=== PATIENT | male | born 2005 | race African-American/Black ===

== ENCOUNTER 2024-06-02 11:59 | Emergency (ER) | payer OTHER, SELFPAY ==
--- NOTE | ~2024-06-02 | CT_ITS ---
EXAMINATION: CT HEAD WITHOUT CONTRAST CLINICAL INFORMATION: headache COMPARISON: None available. TECHNIQUE: Contiguous axial imaging was performed from the skull base to vertex without intravenous administration of contrast. This CT examination was performed using dose optimization techniques as appropriate, variously including the following: *Automated exposure control *Adjustment of mA and/or kV according to patient size (this includes techniques or standardized protocols for targeted exams where dose is matched to indication/reason for exam; i.e. extremities or head) *Use of iterative reconstruction technique DLP: 710 mGy-cm FINDINGS: RESULTS: There is no evidence of acute intracranial hemorrhage, acute large vessel infarct, midline shift or mass effect. The apple-white differentiation is preserved. The ventricles and sulci are within normal limits in size and configuration, aside from mild asymmetry of the left lateral ventricle compared to the right which is a normal variant. There is no evidence of hydrocephalus. There are no extraaxial collections. Osseous structures are intact. Paranasal sinuses and mastoid air cells are well aerated. CT/CT head/brain wo IV con IMPRESSION: No acute intracranial pathology.
[2024-06-02 12:07] VITALS: BP 119/57; PULSE 64; RESP 17; TEMP 36.4; O2SAT 100; BMI 20.9
--- NOTE | 2024-06-02 12:10 | ED_ITS ---
HPI - General Adult General Chief complaint: Headache Stated complaint: Headaches Time Seen by Provider: 06/02/24 12:54 Source: patient and RN notes reviewed Mode of arrival: ambulatory Limitations: no limitations History of Present Illness ED Provider: Jade Pa PA-C HPI narrative: This is a 18-year-old male, with no known medical problems, who presents emergency department with complaints of recurrent headaches for the last several years. Patient states that the headaches occur at random, and states that he is unable to do his daily tested living as the pain does become severe. He states that he currently has a headache, reports that is mild and not the worst headache of his life. He states that last night he worked in overnight, and has not slept. He states that he does not drink a lot of water throughout the day, and often times goes without eating for prolonged periods of time. He denies any fevers or chills. No blurred vision or double vision. No chest pain or shortness for breath. No abdominal pain, nausea or vomiting. He states that he takes Tylenol and or ibuprofen as needed for headaches which provides him with some relief. He does not have a primary care physician at this time. He has been calling however no offices are making appointments for him at this time due to the dizziness of these offices. No recent head injury or head strike. No loss of consciousness. No other complaints or concerns at this time. MD complaint: Headache Onset (ago): year(s) Location: head Radiation: non-radiation Severity: moderate Quality: aching Pain Consistency: constant Exacerbating factors: none Associated symptoms: denies other symptoms Treatments prior to arrival: none Related Data Allergies Allergy/AdvReac Type Severity Reaction Status Date / Time No Known Allergies Allergy Verified 06/02/24 12:15 Review of Systems 2 Review of Systems: Yes all other systems are reviewed and are negative Constitutional: Constitutional: Reports as per [facility] Social History Social History Advance Directives: No Do you have a plan to hurt others: No Plan Physical Exam ED Vital Signs: Vital Signs - 24 hr 06/02/24 12:07 06/02/24 14:32 06/02/24 15:33 Temperature 97.6 F 97.3 F Pulse Rate 64 65 Respiratory Rate 17 16 Blood Pressure 119/57 L 99/47 L 99/52 L Pulse Oximetry 100 100 Oxygen Delivery Method Room Air Room Air 06/02/24 15:48 Temperature 97.6 F Pulse Rate 64 Respiratory Rate 16 Blood Pressure 108/62 Pulse Oximetry 100 Oxygen Delivery Method Room Air BMI result Body Mass Index 20.9 Const General: cooperative, comfortable and no acute distress Orientation/consciousness: patient oriented x3 Limitations: no limitations HENMT Head: Yes normal to inspection, Yes normocephalic and Yes atraumatic Ears: hearing grossly normal bilaterally General nose exam: Normal external nose present Face and sinus: Yes normal facial exam Mouth: Normal oral and palatal mucosa present, oropharynx normal and moist mucous membranes Throat: Yes posterior oropharynx normal Eyes General: appearance normal, both eyes and all related structures Eyelids: Yes eyelids normal Conjunctivae: conjunctivae normal Sclerae: sclerae normal Pupils: Equal, round and reactive pupils present EOM: EOMs intact bilaterally Neck Neck: Yes normal visual inspection, Yes full ROM and Yes no lymphadenopathy Lymphatic: no lymphadenopathy noted Chest Chest palpation & inspection: normal inspection of the chest Resp Effort & Inspection: normal respiratory effort and able to speak in complete sentences Auscultation: clear to auscultation bilaterally, no crackles, no rales, no rhonchi and no wheezes Cardio Rate: regular rate Rhythm: regular rhythm Heart sounds: S1 normal heart sound present and S2 normal heart sound present GI Inspection: Yes normal to inspection Skin General skin exam: no rashes or lesions noted Trauma: no lacerations or abrasions Wounds: no wounds Neuro General: patient oriented x3 and moves all extremities Cranial nerves: Yes CN's II-XII intact bilaterally and Yes Equal, round and reactive pupils present Cognition (Neuro): normal cognition Gait exam (Neuro): Normal gait present Motor exam (neuro): 5/5 motor strength present throughout and Pronator motor function not present Extrem General: Yes normal to inspection Right upper extremity: normal to inspection Left upper extremity: normal to inspection Right lower extremity: normal to inspection Left lower extremity: normal to inspection Course Course Course Narrative: This is an RME performed by [place] CNP: Additional HPI, ROS, PE not included below will be deferred to primary provider. Patient is a 18-year-old male who presents to the emergency department for evaluation of headaches. He reports experiencing headaches 1-2 times per week for years, now occuring more frequently, at times has associated nausea. Denies photophobia/phonophobia. Unable to identify exacerbating or alleviating factors. He infrequently trialed acetaminophen and ibuprofen but has not noticed much improvement with these. Today headache with onset at 06:00, denies any URI symptoms. No focal neurological deficits on exam Reevaluation(s) Reevaluation #1: CT head is normal. Discussed findings with patient and mother. Discussed the importance of good headache care - proper sleep, adequate hydration, and little meals throughout the day. Urged the importance of following up with PCP. I asked if patient's headache is feeling better he states that after sleeping in the room awaiting for his results he is feeling much better, declines wanting pain medication at this time. Given strict return precautions. He understands and agrees with plan. Patient stable for discharge. Medical Decision Making Medical Decision Making [facility] Narrative: This is a 18-year-old male who presents emergency department with complaints of headaches for the last several years. Patient states that he occasionally gets headaches several times a month. He has not been seen medically for these headaches. He does not have a primary care physician at this time. On arrival, blood pressure 119/57. He is alert and oriented x4. He denies any thunderclap headache presentation. He states that his headache is mild. Given ongoing headaches, will obtain CT of the head to rule out any intracranial process although this is unlikely. Differential Diagnosis Differential Diagnoses: The differential diagnosis associated with the presentation includes Intracranial mass, ICH, migraine headache, tension headache, cluster headache Admission/Observation Consideration of admission/observation: Escalation of care including admission/observation considered Lab Data [facility] Lab Attestation statement: I reviewed the patient's lab results. No leukocytosis, stable H&H, chemistry within normal limits. 06/02/24 12:23 06/02/24 12:23 Labs: Lab Results 06/02/24 Range/Units 12:23 WBC 8.2 (4.8-10.8) X10*3/uL RBC 4.85 (4.60-5.80) X10*6/uL Hgb 13.7 L (14.0-18.0) g/dl Hct 38.7 L (42.0-52.0) % MCV 79.8 L (80.0-98.0) fL MCH 28.2 (27.0-33.0) pg MCHC 35.4 (31.0-36.0) g/dl RDW 13.2 (11.0-16.0) % Plt Count 198 (160-400) X10*3/uL MPV 9.9 (9.4-12.4) fL Immature Gran % (Auto) 0.2 (0.0-0.4) % Neut % (Auto) 53.5 (45-73) % Lymph % (Auto) 31.5 (20-40) % [place] % (Auto) 12.8 H (2-11) % Eos % (Auto) 1.5 (0-4) % Baso % (Auto) 0.5 (0-2) % Lymph # (Auto) 2.6 (1.2-4.9) X10*3/uL [place] # (Auto) 1.1 (0.1-1.2) X10*3/uL Eos # (Auto) 0.1 (0.0-0.4) X10*3/uL Baso # (Auto) 0.0 (0.0-0.2) X10*3/uL Abs Immat Gran (auto) 0.02 (0.00-0.03) X10*3/uL Absolute Neuts (auto) 4.4 (2.0-8.3) x10*3/uL Absolute Nucleated RBC 0.000 (0.0-0.012) X10*3/uL Nucleated RBC % (auto) 0.0 (0.0-0.2) /100WBC Sodium 135 (135-145) mmol/L Potassium 4.4 (3.3-5.1) mmol/L Chloride 102 (96-108) mmol/L Carbon Dioxide 25 (22-29) mmol/L Anion Gap 12 (12-20) BUN 19 H (9-16) mg/dL Creatinine 0.79 (0.5-1.4) mg/dL Estim Creat Clear Calc 144.4 Estimated GFR > 60 Random Glucose 97 (60-115) mg/dL Calcium 9.6 (8.4-10.2) mg/dL Magnesium 2.2 (1.6-2.6) mg/dL Total Bilirubin 0.5 (0.0-1.0) mg/dL AST 18 (5-37) U/L ALT 16 (0-40) U/L Alkaline Phosphatase 52 (39-117) U/L Total Protein 7.6 (6.5-8.0) g/dL Albumin 4.4 (3.5-5.0) g/dL Influenza Type A (PCR) NEGATIVE (Negative) Influenza Type B (PCR) NEGATIVE (Negative) RSV RNA Qual (PCR) NEGATIVE (Negative) SARS-CoV-2 RNA (RT-PCR) NEGATIVE (Negative) Radiology Impression Discussion of test interpretation with radiology: I have reviewed the radiologist's reading. Radiologist Impression: INDINGS: RESULTS: There is no evidence of acute intracranial hemorrhage, acute large vessel infarct, midline shift or mass effect. The apple-white differentiation is preserved. The ventricles and sulci are within normal limits in size and configuration, aside from mild asymmetry of the left lateral ventricle compared to the right which is a normal variant. There is no evidence of hydrocephalus. There are no extraaxial collections. Osseous structures are intact. Paranasal sinuses and mastoid air cells are well aerated. CT/CT head/brain wo IV con IMPRESSION: No acute intracranial pathology. Dictated By: Elma Butterfield MD Independent Historian Clinical information obtained from an independent historian. History obtained from or confirmed by: Parent Discharge Plan Discharge Clinical Impression: Headache Patient Disposition: Home, Self-Care Instructions: Acute Headache (ED) Additional Instructions: You were seen in the emergency department due to headache. Your CT scan of your head was normal. Your blood work was reassuring. You tested negative for flu, RSV, and COVID. Please rest, drink plenty of fluids and continue to eat small snacks throughout the day. It is very important to follow-up with the primary care physician, continue to call to make an appointment as having a primary care to follow this is very important. If any new or worsening symptoms occur including but not limited to severe headache, vomiting, chest pain, shortness of breath, please return for re- evaluation. You may take ibuprofen and or Tylenol as needed for headaches if they do return. Interventions: ED Discharge Assessment Last Done: 06/02/24 15:48 Discharge Date/Time: 06/02/24 15:49 Print Language: Samoan
[2024-06-02 12:28] LABS: MANUAL DIFF FLAG NO
[2024-06-02 12:31] LABS: Basophils Percent Auto 0.5 % (0-2); Eosinophils Absolute Auto 0.1 X10*3/uL (0.0-0.4); Eosinophils Percent Auto 1.5 % (0-4); Hematocrit 38.7 % (42.0-52.0); Hemoglobin 13.7 g/dl (14.0-18.0); Imm Gran Abs Auto 0.02 X10*3/uL (0.00-0.03); Imm Gran Pct Auto 0.2 % (0.0-0.4); Lymphocytes Absolute Auto 2.6 X10*3/uL (1.2-4.9); Lymphocytes Percent Auto 31.5 % (20-40); Mean Corpuscular HGB Conc 35.4 g/dl (31.0-36.0); Mean Corpuscular Hemoglobin 28.2 pg (27.0-33.0); Mean Corpuscular Volume 79.8 fL (80.0-98.0); Mean Platelet Volume 9.9 fL (9.4-12.4); Monocytes Absolute Auto 1.1 X10*3/uL (0.1-1.2); Monocytes Percent Auto 12.8 % (2-11); Neutrophils Absolute Auto 4.4 x10*3/uL (2.0-8.3); Neutrophils Percent Auto 53.5 % (45-73); Platelet Count 198 X10*3/uL (160-400); Red Blood Count 4.85 X10*6/uL (4.60-5.80); Red Cell Distribution Width 13.2 % (11.0-16.0); White Blood Count 8.2 X10*3/uL (4.8-10.8)
[2024-06-02 12:51] LABS: Alanine Aminotransferase 16 U/L (0-40); Albumin Level 4.4 g/dL (3.5-5.0); Alkaline Phosphatase 52 U/L (39-117); Anion Gap 12 (12-20); Aspartate Amino Transferase 18 U/L (5-37); Bilirubin Total 0.5 mg/dL (0.0-1.0); Blood Urea Nitrogen 19 mg/dL (9-16); Calcium 9.6 mg/dL (8.4-10.2); Carbon Dioxide 25 mmol/L (22-29); Chloride 102 mmol/L (96-108); Creatinine Clr Calc Pharmacy 144.4; Estimated Glomerular Filt Rate > 60; Glucose Random 97 mg/dL (60-115); Magnesium 2.2 mg/dL (1.6-2.6); Potassium 4.4 mmol/L (3.3-5.1); Sodium 135 mmol/L (135-145); Total Protein 7.6 g/dL (6.5-8.0)
[2024-06-02 13:31] LABS: Influenza A PCR NEGATIVE (Negative); Influenza B PCR NEGATIVE (Negative); Resp Syncy Virus RNA Qual PCR NEGATIVE (Negative); SARS COV2 PCR INHOUSE NEGATIVE (Negative)
[2024-06-02 14:32] VITALS: BP 99/47; PULSE 65; RESP 16; TEMP 36.3; O2SAT 100
[2024-06-02 15:33] VITALS: BP 99/52
[2024-06-02 15:48] VITALS: BP 108/62; PULSE 64; RESP 16; TEMP 36.4; O2SAT 100
== END 2024-06-02 15:49 | disposition home or self-care (01) ==
PROVIDERS: Nurse Practitioner Family; Emergency Provider Emergency Medicine Emergency Medical Services
DX: R51.9 Headache, unspecified (principal); Z03.818 Encounter for observation for suspected exposure to other biological agents ruled out
CPT/HCPCS: 0241U; 70450; 80053; 83735; 85025; 99283; 99284